=== PATIENT | male | born 1995 | race African-American/Black ===

== ENCOUNTER 2021-09-19 17:16 | Inpatient (IN) | payer OTHER ==
[~2021-09-19] VITALS: Ht 182.9 cm; Wt 87.5 kg
--- NOTE | 2021-09-19 17:29 | NUR ---
TO ER BED 1, CHEOSEBASTIAN C/O LEFT LOWER LEG PAIN S/P FALL FROM SKATEBOARD AT 1630 TODAY, AAOX3, BREATHING EVEN AND NON LABORED, SEEN BY DR GAITAN
--- NOTE | 2021-09-19 17:37 | NUR ---
TAR HEEL AT BEDSIDE FOR XRAY
--- NOTE | 2021-09-19 17:55 | NUR ---
ORTHO DR. DANIELS CONTACTED.
[2021-09-19] MEDS ORDERED: MORPHINE SULFATE INJ 4 MG/ML DISP.SYRIN ONE (17:57)
[2021-09-19] MEDS ORDERED: MORPHINE SULFATE INJ 2 MG/ML DISP.SYRIN IM ONE (18:00)
--- NOTE | 2021-09-19 18:01 | NUR ---
DR. DANIELS SPEAKING WITH DR. GAITAN.
--- NOTE | 2021-09-19 18:58 | NUR ---
PT IS TO BE NPO AFTER MIDNIGHT PER DR. DANIELS
--- NOTE | 2021-09-19 19:11 | NUR ---
COVID SWAB DONE AND SENT TO LAB
--- NOTE | 2021-09-19 19:28 | NUR ---
[facility] CALLED SANITATION ENGINEER PAGED.
--- NOTE | 2021-09-19 19:31 | NUR ---
DR. DANIELS AT BEDSIDE
--- NOTE | 2021-09-19 19:47 | NUR ---
PT TAKEN TO CT VIA [facility]
--- NOTE | 2021-09-19 19:51 | NUR ---
PER DONOVAN RN SUP, PT SCHEDULED FOR SURGERY: LEFT INTERMEDULLARY TIBIA NAIL FOR TOMORROW 09/20/21 MORNING
[2021-09-19 19:54] LABS: CREATININE 3.9 mg/dL (0.6-1.3); POTASSIUM 5.5 mmol/L (3.5-5.1)
--- NOTE | 2021-09-19 20:04 | NUR ---
REPORT TO RYAN
[2021-09-19 20:20] LABS: BASOPHILS % (AUTO) 0.2 % (0.0-2.0); EOSINOPHILS % (AUTO) 0.3 % (0.0-6.0); HEMATOCRIT 42 % (39-51); HEMOGLOBIN 13.8 g/dL (13.5-17.5); LYMPHOCYTES # (AUTO) 1.5 K/uL (0.8-4.8); MEAN CORPUSCULAR HGB CONC 33 g/dl (31.0-36.0); MEAN CORPUSCULAR VOLUME 87 fL (80-96); MONOCYTES # (AUTO) 1.1 K/uL (0.1-1.30); MONOCYTES % (AUTO) 7.1 % (2.0-12.0); NEUTROPHILS # (AUTO) 12.7 K/uL (1.8-8.9); NEUTROPHILS % (AUTO) 82.4 % (43.0-81.0); PLATELET COUNT (AUTO) 261 K/uL (150-450); RED BLOOD CELL COUNT(AUTO) 4.78 MIL/uL (4.5-6.0); WHITE BLOOD COUNT (AUTO) 15.4 K/uL (4.3-11.0)
--- NOTE | 2021-09-19 20:21 | NUR ---
LAB AT BEDSIDE
[2021-09-19] MEDS ORDERED: ACETAMINOPHEN 325 MG TABLET PO PRN (21:00)
[2021-09-19] MEDS ORDERED: ONDANSETRON HCL/PF 4 MG/2 ML VIAL IVP PRN (21:00)
[2021-09-19] MEDS ORDERED: HYDROCODONE/APAP 10/325MG TABLET PO PRN (21:00)
[2021-09-19] MEDS ORDERED: IV NS 0.9% 500 ML IV ONE (21:00)
--- NOTE | 2021-09-19 21:02 | NUR ---
PT TRANSPORTED TO ROOM 312 VIA [facility]
--- NOTE | 2021-09-19 21:05 | NUR ---
RN ADMITTING NOTE PATIENT BEING ADMITTED FROM ER FOR LEFT LEG FX. PATIENT IS A/O X 4, ABLE TO MAKE NEEDS KNOWN. PATIENT WITH SISTER. ON RA, TOLERATING WELL, NO SOB NOTED. PATIENT VERBALIZING PAIN 10/10 ON LEFT LOWER LEG. LEFT LOWER LEG JUAN WRAPPED. ELEVATED WITH PILLOW NO EDEMA NOTED. NO SENSORY LOSS. PATIENT HAS A R HAND 20 G PATENT AND INTACT. NO OTHER SKIN ISSUES. BELONGINGS INVENTORIED. ORIENTED PATIENT TO ROOM, RN, AND STENCIL PRINTER. PATIENT TO BE NPO AFTER MIDNIGHT. SAFETY MEASURES IN PLACE: BED LOCKED AND IN LOWEST POSITION, CALL LIGHT WITHIN REACH, SIDE RAILS UP. WILL MONITOR PATIENT CLOSELY.
[2021-09-19] MEDS: MORPHINE SULFATE INJ 2 MG/ML DISP.SYRIN IV PRN (21:24)
--- NOTE | 2021-09-19 21:24 | NUR ---
MORPHINE GIVEN FOR 10/10 PAIN ON THE LEFT LEG
--- NOTE | 2021-09-19 22:10 | NUR ---
CONSENTS FOR PROCEDURE, ANESTHESIA, AND BLOOD TRANSFUSION OBTAINED
[2021-09-20] MEDS: IV NS 0.9% 1,000 ML IV PRN ×2 (00:50→18:20)
[2021-09-20] MEDS: MORPHINE SULFATE INJ 2 MG/ML DISP.SYRIN IV PRN ×2 (03:44→08:23)
[2021-09-20 06:45] LABS: BASOPHILS % (AUTO) 0.4 % (0.0-2.0); EOSINOPHILS % (AUTO) 1.1 % (0.0-6.0); HEMATOCRIT 40 % (39-51); HEMOGLOBIN 13.1 g/dL (13.5-17.5); LYMPHOCYTES # (AUTO) 2.1 K/uL (0.8-4.8); LYMPHOCYTES % (AUTO) 22.2 % (20.0-44.0); MEAN CORPUSCULAR HGB CONC 33 g/dl (31.0-36.0); MEAN CORPUSCULAR VOLUME 88 fL (80-96); MONOCYTES % (AUTO) 10.9 % (2.0-12.0); NEUTROPHILS # (AUTO) 6.2 K/uL (1.8-8.9); NEUTROPHILS % (AUTO) 65.4 % (43.0-81.0); PLATELET COUNT (AUTO) 227 K/uL (150-450); RED BLOOD CELL COUNT(AUTO) 4.57 MIL/uL (4.5-6.0); WHITE BLOOD COUNT (AUTO) 9.5 K/uL (4.3-11.0)
--- NOTE | 2021-09-20 06:50 | NUR ---
RN CLOSING NOTE PATIENT IN BED AWAKE, PATIENT IS ABLE TO MAKE NEEDS KNOWN. PATIENT NPO STATUS MAINTAINED. FOR SX THIS AM WITH DR. DANIELS. PATIENT LEFT LEG ELEVATED, ICE ON. SAFETY MEASURES IMPLEMENTED. PAIN MANAGED WITH MORPHINE. ALL NEEDS MET AND ATTEDED. ALL ORDERS CARRIED OUT. IVF ONGOING, LAC 20G PATENT AND INTACT. PATIENT NOT IN ANY RESPIRATORY DISTRESS. WILL ENDORSE TO DAY SHIFT NURSE FOR EDUARDA.
[2021-09-20 07:20] LABS: CALCIUM, SERUM 8.6 mg/dL (8.5-10.1); CREATININE 0.9 mg/dL (0.6-1.3); MAGNESIUM 1.9 mg/dL (1.8-2.4); PHOSPHORUS 3.8 mg/dL (2.5-4.9); POTASSIUM 3.7 mmol/L (3.5-5.1)
--- NOTE | 2021-09-20 07:26 | NUR ---
MS RN OPENING NOTE RECEIVED PT IN BED AWAKE. A/O X4 AND ABLE TO MAKE NEEDS KNOWN. ON RA, TOLERATING WELL. BREATHING EVEN AND UNLABORED. NOT IN ANY SIGN OF DISTRESS. IV SITE ON LAC G #20 INTACT AND PATENT WITH NS INFUSING AT 100ML/HR. SAFETY MEASURES IN PLACE: BED IN LOWEST AND LOCKED POSITION, SIDE RAILS UPx2, CALL LIGHT WITHIN REACH. WILL CONTINUE TO MONITOR PT.
[2021-09-20 08:00] VITALS: BP 136/67
[2021-09-20 08:34] LABS: BILIRUBIN,URINE NEGATIVE (NEGATIVE); COLOR,URINE YELLOW (YELLOW); LEUKOCYTE ESTERASE ,URINE NEGATIVE (NEGATIVE); NITRITE, URINE NEGATIVE (NEGATIVE); PROTEIN,URINE NEGATIVE (NEGATIVE); UGLUCOSE NEGATIVE (NEGATIVE); UROBILINOGEN,URINE 0.2 EU/dL (0.2)
--- NOTE | 2021-09-20 08:38 | NUR ---
RN NOTE PT COMPLAINED OF L LEG PAIN WITH A PAIN SCALE LEVEL OF 9/10. MORPHINE AT 2MG IVP GIVEN ORDERED PRN AT 0823. WILL REASSESS PT.
[2021-09-20] MEDS ORDERED: ANESTHESIA TRAY IN PYXIS 1 EA TRAY MC ONE (08:49)
[2021-09-20] MEDS ORDERED: BUPIVACAINE 0.5 % PF 150 MG/30 ML VIAL ONE (08:50)
--- NOTE | 2021-09-20 09:40 | NUR ---
RN NOTE PT LEFT THE UNIT AT 0935 FOR LEFT TIBIAL PROCEDURE. TAIL BOARD MAN BY OR NURSE ELISE HUMPHREY.
[2021-09-20] MEDS ORDERED: HYDROMORPHONE INJ 2 MG/ML DISP.SYRIN ONE (09:44)
[2021-09-20] MEDS ORDERED: MIDAZOLAM HCL 2 MG/2ML VIAL ONE (09:45)
[2021-09-20 10:21] LABS: BACTERIA,URINE None seen /HPF (None Seen); RBC,URINE 0-2 /HPF (0-2); WBC,URINE 0-2 /HPF (0-3)
[2021-09-20 10:22] LABS: MUCUS,URINE Few /LPF (None Seen); SQUAMOUS EPITHELIAL CELL,UR Rare /HPF (None Seen)
[2021-09-20] MEDS ORDERED: BUPIVACAINE 0.25% 75 MG/30 ML VIAL ONE (12:10)
[2021-09-20] MEDS ORDERED: FENTANYL PF 100MCG/2ML AMPUL ONE (13:41)
[2021-09-20] MEDS ORDERED: ONDANSETRON HCL/PF 4 MG/2 ML VIAL IVP PRN (14:00)
--- NOTE | 2021-09-20 14:40 | NUR ---
RN NOTE PT BACK FROM PROCEDURE FOR S/P ORIF ON L TIBIAL AT 1412. NO ACTIVE BLEEDING NOTED. PT DENIES PAIN OR DISCOMFORT AT THIS TIME. LEFT LEG KEPT ELEVATED WITH ICE PACK IN PLACE. WEIGHT BEARING TOLERATED TO LEFT LOWER EXT. VITAL SIGNS TAKEN: BP 131/85, P 56, TEMP 98.0, R 18, SPO2 100%. WILL CONTINUE TO MONITOR PT.
[2021-09-20 16:00] VITALS: BP 145/83
[2021-09-20] MEDS: ANCEF 1 GM/50 ML D5W IV SCH ×2 (18:17)
--- NOTE | 2021-09-20 19:30 | NUR ---
MS RN OPENING NOTE RECEIVED PATIENT IN BED, A/OX4. 1 VISITOR AT BEDSIDE AT THIS TIME. NO S/S OF APPARENT DISTRESS ON ROOM AIR. C/O /10 PAIN. L. LEG NOTED TO HAVE JUAN BAND WRAPPED, ELEVATED AND ICE PACK IN PLACE. PATIENT ORIENTED WITH THE USE OF CALL LIGHT. SAFETY IN PLACE. WILL CONTINUE WITH PLAN OF CARE FOR PATIENT.
--- NOTE | 2021-09-20 19:30 | NUR ---
MS RN CLOSING NOTE PT IN BED AWAKE. A/O X4 AND ABLE TO MAKE NEEDS KNOWN. ON RA, TOLERATING WELL. BREATHING EVEN AND UNLABORED. NOT IN ANY SIGN OF DISTRESS. IV SITE ON LAC G #20 INTACT AND PATENT WITH NS INFUSING AT 150ML/HR. ALL NEEDS ATTENDED. SAFETY MEASURES IN PLACE: BED IN LOWEST AND LOCKED POSITION, SIDE RAILS UPx2, CALL LIGHT WITHIN REACH. ENDORSED TO INOCULATOR NURSE FOR EDUARDA.
[2021-09-20] MEDS: HYDROCODONE/APAP 10/325MG TABLET PO PRN (19:36)
--- NOTE | 2021-09-20 19:41 | NUR ---
MS RN NOTE PATIENT C/O 7/10 PAIN ON L. LEG S/P SURGERY. GIVEN NORCO-10. WILL RE-ASSESS.
[2021-09-20 20:00] VITALS: BP 123/73
[2021-09-21] MEDS: HYDROCODONE/APAP 10/325MG TABLET PO PRN ×3 (00:35→19:25)
--- NOTE | 2021-09-21 00:38 | NUR ---
MS RN NOTE C/O 6/10 PAIN. GIVEN NORCO-10 PRN. WILL RE-ASSESS.
[2021-09-21] MEDS: IV NS 0.9% 1,000 ML IV PRN ×2 (01:55→10:00)
[2021-09-21] MEDS: ANCEF 1 GM/50 ML D5W IV SCH ×4 (01:56→10:04)
[2021-09-21] MEDS: MORPHINE SULFATE INJ 2 MG/ML DISP.SYRIN IV PRN ×3 (02:00→10:23)
--- NOTE | 2021-09-21 02:06 | NUR ---
MS RN NOTE C/O SEVERE PAIN SURGERY 02/07 GIVEN MORPHINE 2MG. WILL REASSESS.
--- NOTE | 2021-09-21 06:12 | NUR ---
MS RN NOTE PATIENT C/O 8/10 PAIN ON SURGERY SITE. GIVEN MORPHINE 2MG FOR PAIN. WILL RE-ASSESS.
[2021-09-21 06:31] LABS: BASOPHILS % (AUTO) 0.3 % (0.0-2.0); EOSINOPHILS % (AUTO) 0.9 % (0.0-6.0); HEMATOCRIT 33 % (39-51); HEMOGLOBIN 11.1 g/dL (13.5-17.5); LYMPHOCYTES # (AUTO) 2.7 K/uL (0.8-4.8); LYMPHOCYTES % (AUTO) 25.8 % (20.0-44.0); MEAN CORPUSCULAR HGB CONC 34 g/dl (31.0-36.0); MEAN CORPUSCULAR VOLUME 87 fL (80-96); MONOCYTES # (AUTO) 1.2 K/uL (0.1-1.30); MONOCYTES % (AUTO) 11.1 % (2.0-12.0); NEUTROPHILS # (AUTO) 6.5 K/uL (1.8-8.9); NEUTROPHILS % (AUTO) 61.9 % (43.0-81.0); PLATELET COUNT (AUTO) 258 K/uL (150-450); RED BLOOD CELL COUNT(AUTO) 3.74 MIL/uL (4.5-6.0); WHITE BLOOD COUNT (AUTO) 10.5 K/uL (4.3-11.0)
--- NOTE | 2021-09-21 07:00 | NUR ---
MS RN CLOSING NOTE PATIENT IN BED A/OX4. NO S/S OF APPARENT DISTRESS-- ON AND OFF O2 VIA NC 2LPM FOR COMFORT. PAIN MANAGED WITH MEDICATIONS. IV NS RUNNING @150 MLS/HR. L. LEG ELEVATED AND ICE PACK IN PLACE. ALL NEEDS ATTENDED. ALL SCHEDULED MEDICATIONS ADMINISTERED. SAFETY KEPT IN PLACE THE WHOLE SHIFT. WILL ENDORSE TO MORNING SHIFT RN FOR CONTINUITY OF CARE.
[2021-09-21 07:18] LABS: CALCIUM, SERUM 8.1 mg/dL (8.5-10.1); CREATININE 0.7 mg/dL (0.6-1.3); PHOSPHORUS 3.4 mg/dL (2.5-4.9)
[2021-09-21 08:00] VITALS: BP 141/68
[2021-09-21] MEDS: ASPIRIN EC 325 MG TABLET.DR PO SCH (10:04)
[2021-09-21] MEDS ORDERED: METHOCARBAMOL (500MG) 500 MG TABLET PO PRN (12:00)
[2021-09-21 16:00] VITALS: BP 111/66
--- NOTE | 2021-09-21 17:14 | NUR ---
medicated x1 with morphine and x1 with norco.
--- NOTE | 2021-09-21 17:15 | NUR ---
lt. leg elevated with ice pack.
--- NOTE | 2021-09-21 19:32 | NUR ---
MS RN OPENING NOTE RECEIVED PATIENT IN BED, A/OX4. NO S/S OF APPARENT DISTRESS ON ROOM AIR. C/O 11/07 PAIN-- WILL MANAGE WITH MEDICATION. L. LEG NOTED TO HAVE JUAN BAND WRAPPED, ELEVATED AND ICE PACK IN PLACE. PATIENT ORIENTED WITH THE USE OF CALL LIGHT. SAFETY IN PLACE. WILL CONTINUE WITH PLAN OF CARE FOR PATIENT.
[2021-09-21 20:00] VITALS: BP 146/71
[2021-09-22] MEDS: MORPHINE SULFATE INJ 2 MG/ML DISP.SYRIN IV PRN (01:21)
[2021-09-22] MEDS: HYDROCODONE/APAP 10/325MG TABLET PO PRN ×4 (04:44→21:34)
--- NOTE | 2021-09-22 06:27 | NUR ---
MS RN CLOSING NOTE PATIENT IN BED A/OX4. NO S/S OF APPARENT DISTRESS ON ROOM AIR. PAIN MANAGED WITH MEDICATIONS. L. LEG ELEVATED AND ICE PACK IN PLACE. ALL NEEDS ATTENDED. ALL SCHEDULED MEDICATIONS ADMINISTERED. SAFETY KEPT IN PLACE THE WHOLE SHIFT. WILL ENDORSE TO MORNING SHIFT RN FOR CONTINUITY OF CARE.
[2021-09-22 06:48] LABS: BASOPHILS % (AUTO) 0.2 % (0.0-2.0); HEMATOCRIT 35 % (39-51); HEMOGLOBIN 11.7 g/dL (13.5-17.5); LYMPHOCYTES # (AUTO) 1.7 K/uL (0.8-4.8); LYMPHOCYTES % (AUTO) 16.8 % (20.0-44.0); MEAN CORPUSCULAR HGB CONC 34 g/dl (31.0-36.0); MEAN CORPUSCULAR VOLUME 87 fL (80-96); MONOCYTES # (AUTO) 1.3 K/uL (0.1-1.30); MONOCYTES % (AUTO) 13.3 % (2.0-12.0); NEUTROPHILS # (AUTO) 6.9 K/uL (1.8-8.9); NEUTROPHILS % (AUTO) 68.7 % (43.0-81.0); PLATELET COUNT (AUTO) 208 K/uL (150-450); RED BLOOD CELL COUNT(AUTO) 3.96 MIL/uL (4.5-6.0)
--- NOTE | 2021-09-22 07:28 | NUR ---
MS RN OPENING NOTE RECEIVED PATIENT AWAKE IN BED, A/OX4. NO PAIN NOTED.NO SOB NOTED. ON ROOM AIR. ABLE TO MAKE NEEDS KNOWN. ON LEFT LEG NOTED TO HAVE JUAN BAND WRAPPED, ELEVATED AND ICE PACK IN PLACE. IV ACCESS ON THE LAC # 20 INTACT. ALL SAFETY MEASURES IN PLACE. BED LOCKED IN THE LOWEST POSITION. CALL LIGHT AND TABLE IN REACH.WILL CONTINUE TO MONITOR.
[2021-09-22 08:00] VITALS: BP 126/76
[2021-09-22] MEDS: ASPIRIN EC 325 MG TABLET.DR PO SCH (08:17)
[2021-09-22 08:38] LABS: CALCIUM, SERUM 8.8 mg/dL (8.5-10.1); CREATININE 0.8 mg/dL (0.6-1.3)
[2021-09-22] MEDS: POTASSIUM CHLORIDE 20 MEQ TAB.PRT.SR PO SCH ×3 (09:55→11:58)
[2021-09-22 16:00] VITALS: BP 136/71
--- NOTE | 2021-09-22 18:38 | NUR ---
MS RN CLOSING NOTE PATIENT AWAKE IN BED, A/OX4. NO PAIN NOTED.NO SOB NOTED. ON ROOM AIR. ABLE TO MAKE NEEDS KNOWN. S/P OF THE LEFT TIBIA ORIF AT 09/20, NOTED TO HAVE JUAN BAND WRAPPED, ELEVATED AND ICE PACK IN PLACE. IV ACCESS ON THE LAC # 20 INTACT.ALL DUE MEDS GIVEN ORDERED. ALL SAFETY MEASURES IN PLACE. PATIENT HAD PHYSICAL THERAPY TODAY. TOLERATED WELL. ABLE TO AMBULATE IN THE HALLWAY WITH PHYSICAL THERAPY.BED LOCKED IN THE LOWEST POSITION. CALL LIGHT AND TABLE IN REACH.WILL ENDORSE FOR EDUARDA.
[2021-09-22] MEDS: IV NS 0.9% 1,000 ML IV PRN (18:53)
--- NOTE | 2021-09-22 19:40 | NUR ---
MS RN NOTES RECEIVED ON BED A/O X4,BREATHING REGULAR,NOT IN ANY FORM OF DISTRESS,IV SITE INFILTRATED ON LEFT AC,DAY NURSE ATTEMPTED TO PUT NEW SALINE LOCK BUT UNSUCCESSFUL,NIGHT NURSE OFFERED TO PUT NEW SALINE LOCK BUT REFUSED,COMMENTED I'VE BEEN EATING AND DRINK A LOT OF WATER.S/P ORIF LEFT TIBIA FRACTURE,DRESSING INTACT AND DRY.AMBULATE,WEIGHT BEARING ON LEFT LEG.CALL LIGHT IN REACH,NEEDS ANTICIPATED.
[2021-09-22 20:00] VITALS: BP 124/68
--- NOTE | 2021-09-22 21:34 | NUR ---
MS RN NOTES PAIN MANAGEMENT C/O PAIN ON LEFT LEG 7/10 ON PAIN SCALE,NORCO 10/325MG,1 TAB PO GIVEN ORDERED.
[2021-09-23 06:36] LABS: BASOPHILS % (AUTO) 0.4 % (0.0-2.0); EOSINOPHILS % (AUTO) 3.8 % (0.0-6.0); HEMATOCRIT 39 % (39-51); HEMOGLOBIN 12.9 g/dL (13.5-17.5); LYMPHOCYTES # (AUTO) 2.2 K/uL (0.8-4.8); LYMPHOCYTES % (AUTO) 26.4 % (20.0-44.0); MEAN CORPUSCULAR HGB CONC 33 g/dl (31.0-36.0); MEAN CORPUSCULAR VOLUME 88 fL (80-96); MONOCYTES # (AUTO) 1.2 K/uL (0.1-1.30); MONOCYTES % (AUTO) 14.9 % (2.0-12.0); NEUTROPHILS # (AUTO) 4.5 K/uL (1.8-8.9); NEUTROPHILS % (AUTO) 54.5 % (43.0-81.0); PLATELET COUNT (AUTO) 243 K/uL (150-450); RED BLOOD CELL COUNT(AUTO) 4.45 MIL/uL (4.5-6.0); WHITE BLOOD COUNT (AUTO) 8.3 K/uL (4.3-11.0)
--- NOTE | 2021-09-23 06:39 | NUR ---
MS RN NOTES SLEPT WELL AT NIGHT,PAIN MANAGEMENT EFFECTIVE.STILL NO IV ACCESS,PATIENT REFUSED.DRESSING TO LEFT LEG INTACT AND DRY.IN NO ACUTE DISTRESS.
[2021-09-23 06:53] LABS: CALCIUM, SERUM 9.1 mg/dL (8.5-10.1); CREATININE 0.9 mg/dL (0.6-1.3); POTASSIUM 4.1 mmol/L (3.5-5.1)
[2021-09-23] MEDS: HYDROCODONE/APAP 10/325MG TABLET PO PRN (06:58)
[2021-09-23] MEDS ORDERED: ASPI-869 PO (07:07)
--- NOTE | 2021-09-23 07:17 | NUR ---
MS RN OPENING NOTE RECEIVED PATIENT AWAKE IN BED, A/OX4. COMPLAINS OF PAIN 7/10 NORCO 10/325 MG GIVEN ORDERED .NO SOB NOTED. ON ROOM AIR. ABLE TO MAKE NEEDS KNOWN. ON LEFT LEG NOTED TO HAVE JUAN BAND WRAPPED, ELEVATED AND ICE PACK IN PLACE. DR. MAY VISITED THE PATIENT. PATIENT WILL BE DISCHARGE TODAY. ALL SAFETY MEASURES IN PLACE. BED LOCKED IN THE LOWEST POSITION. CALL LIGHT AND TABLE IN REACH.WILL CONTINUE TO MONITOR.
[2021-09-23 08:00] VITALS: BP 130/72
[2021-09-23] MEDS: ASPIRIN EC 325 MG TABLET.DR PO SCH (08:05)
--- NOTE | 2021-09-23 11:00 | NUR ---
RN NOTES DISCHARGE PATIENT IN STABLE CONDITION. VITAL SIGNS IN STABLE CONDITION. NO PAIN NOTED. NO SOB NOTED. NO DISTRESS NOTED. ALL THE BELONGINGS ACCOUNTED AND SIGNED FOR. NO IV SITE. ALL THE DISCHARGE INSTRUCTIONS GIVEN TO THE PATIENT. PATIENT VERBALIZED UNDERSTANDING. ALL NEEDS ATTENDED. FAMILY MEMBER CAME TO PICK THE PATIENT UP. STUDENT NURSE POLLY AND SUNSHINE WHEELED THE PATIENT TO THE LOBBY. PATIENT LEFT HOSPITAL AT [address] MAY AND CHARGE NURSE AWARE OF THE DISCHARGE.
== END 2021-09-23 11:00 | disposition home or self-care (01) | DRG 313 ==
LOC: ER 17:18 → MED 19:52
PROVIDERS: ADMIT Nurse Practitioner Acute Care; ATTEND Family Medicine
PROC: 0QSH06Z Reposition Left Tibia with Intramedullary Internal Fixation Device, Open Approach (ICD-10-PCS; principal; 2021-09-20)
PROC: 0HQEXZZ Repair Left Lower Arm Skin, External Approach (ICD-10-PCS; 2021-09-20)
DX: S82.252A Displaced comminuted fracture of shaft of left tibia, initial encounter for closed fracture (principal); N17.0 Acute kidney failure with tubular necrosis; D62 Acute posthemorrhagic anemia; E87.5 Hyperkalemia; S41.112A Laceration without foreign body of left upper arm, initial encounter; F12.90 Cannabis use, unspecified, uncomplicated; Y93.51 Activity, roller skating (inline) and skateboarding; V00.131A Fall from skateboard, initial encounter; Y92.9 Unspecified place or not applicable; Z20.822 Contact with and (suspected) exposure to COVID-19
CPT/HCPCS: 36415; 71045-TC; 73590-TC; 73700-TC; 80048-TC; 80061-TC; 81001; 82550-TC; 82553; 83735-TC; 84100-TC; 85025-TC; 85027-TC; 85730-TC; 86850-TC; 87081-TC; 97116-TC; 97530-TC; A4217; A6253; C1713; G0378; J0690; J1100; J1170; J1885; J2250; J2270; J2405; J2704; J3010; J3490; J7030; J7040; J7050; J7060